=== PATIENT | female | born 2000 | race Caucasian/White ===

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

== ENCOUNTER 2020-08-02 20:56 | Outpatient (REF) | payer OTHER, SELFPAY ==
[2020-08-05 09:36] LABS: COVID-19 RT-PCR Result NEGATIVE (Negative)
== END 2020-08-02 21:16 ==
LOC: NCHCN 20:56
PROVIDERS: PCP Nurse Practitioner Family; Visit Provider Family Medicine
DX: Z11.59 Encounter for screening for other viral diseases (principal)
CPT/HCPCS: U0003

== ENCOUNTER 2020-09-06 17:31 | Outpatient (REF) | payer MEDICAID, SELFPAY ==
[2020-09-08 14:40] LABS: COVID-19 RT-PCR UVMMC Result Negative (Negative)
== END 2020-09-06 17:51 ==
LOC: NCHCN 17:31
PROVIDERS: PCP Nurse Practitioner Family; Visit Provider Nurse Practitioner Family
DX: J02.9 Acute pharyngitis, unspecified (principal)
CPT/HCPCS: U0003

== ENCOUNTER 2022-09-04 15:15 | Outpatient (REF) | payer MEDICAID, SELFPAY ==
--- NOTE | 2022-09-04 14:15 | PAPFT_PTH ---
PATIENT: Chris Cody LOC: [facility] U#:[id number] AGE/SX: 22/F ROOM: RE09/04/[address]: Nena Rubin : 2000 BED: DIS: 09/04/2022 SPEC #: [id number] RECD: 09/05/22 12:58 STATUS: LUIS MANUEL REAlonso #: [id number] ÁLVARO: 09/04/22 14:[address]: Nena Rubin [facility] Cytology RECD BY: Crystal Simon ENTERED: 09/05/22 12:59 SP TYPE: PAPFT OTHR DR: Mouna Trujillo Tissues: 1 - CX/ENDOCX FOR PAP SMEARS Procedures: PAP THIN PREP/[facility] Screening Comments: [id number] (CHLAMYDIA/GC)
[2022-09-06 12:58] LABS: Chlamydia Result Negative (Negative); GC Result Negative (Negative)
== END 2022-09-04 15:16 | disposition home or self-care (01) ==
LOC: LBN 15:15
PROVIDERS: PCP Nurse Practitioner Family; Visit Provider Family Medicine
DX: Z11.3 Encounter for screening for infections with a predominantly sexual mode of transmission (principal); Z12.4 Encounter for screening for malignant neoplasm of cervix
CPT/HCPCS: 87491; 87591; 88142

== ENCOUNTER 2025-08-24 14:47 | Outpatient (REF) | payer OTHER, MEDICAID, SELFPAY ==
[2025-08-24 21:43] LABS: Abs Immature Grans 0.04 10^3/uL (0.0-0.06); HCT 39.5 % (36.0-46.0); HGB 13.1 g/dL (11.2-15.7); Immature Grans % 0.4 %; MCH 31.5 pg (27.0-33.0); MCHC 33.2 % (32.0-36.0); MCV 95 fL (80-95); MPV 10.5 fL (8.0-11.0); Platelet Count 280 10^3/uL (130-400); RBC 4.16 10^6/uL (3.93-5.22); RDW 11.9 % (11.7-14.6); RDW-SD 41.5 fL; WBC 10.05 10^3/uL (4.4-10.8)
[2025-08-24 21:54] LABS: ALT 16 U/L (10-49); AST 22 U/L (<34); Albumin 5.0 g/dL (3.2-5.0); Alkaline Phosphatase 38 U/L (46-116); Anion Gap 9 mmol/L (3-11); BUN 12 mg/dL (9-23); Bilirubin, Total 0.7 mg/dL (0.2-1.2); CO2 27.0 mmol/L (20.0-31.0); Calcium 9.9 mg/dL (8.3-10.6); Chloride 106 mmol/L (98-107); Glucose 82 mg/dL (74-106); Potassium 4.7 mmol/L (3.5-5.1); Sodium 142 mmol/L (136-145); Total Protein 8.0 g/dL (5.7-8.2)
[2025-08-24 21:57] LABS: TSH (W/Ref FT4) 1.67 uIU/mL (0.55-4.78); Vitamin D 25 Total 34 ng/mL (30-100)
[2025-08-24 21:58] LABS: Ferritin 132 ng/mL (7-271); Vitamin B12 1286 pg/mL (211-911)
== END 2025-08-24 14:48 | disposition home or self-care (01) ==
LOC: NCHCN 14:47
PROVIDERS: PCP Nurse Practitioner Family; Visit Provider Family Medicine
DX: R68.89 Other general symptoms and signs (principal); Z86.2 Personal history of diseases of the blood and blood-forming organs and certain disorders involving the immune mechanism; R53.83 Other fatigue; R14.0 Abdominal distension (gaseous)
CPT/HCPCS: 80053; 82306; 82784; 83516; 82607; 82728; 84443; 85025